=== PATIENT | male | born 1985 | race Caucasian/White ===

== ENCOUNTER 2023-08-17 15:10 | Emergency (ER) | payer OTHER, SELFPAY ==
[2023-08-17 15:12] VITALS: BP 165/85; PULSE 83; RESP 14; TEMP 37; O2SAT 100
[2023-08-17 15:19] VITALS: BP 165/85; PULSE 83; RESP 14; TEMP 37; O2SAT 100
--- NOTE | 2023-08-17 15:45 | DI.RAD_ITS ---
Exam(s) XR TIB/FIB RT EXAM: XR TIB/FIB RT CLINICAL HISTORY: Right lower extremity swelling. TECHNIQUE: 2D digital imaging was performed of the right tibia and fibula. Four images were obtained . AP and lateral views were obtained. COMPARISON: No exams were available for comparison FINDINGS: BONES: No acute fracture is present. No bony destructive lesion is seen. Visualized portion of knee a nd ankle joints are unremarkable. There is a small enthesophyte at the posterior calcaneus. Degenera tive changes are seen at the talonavicular joint. SOFT TISSUE: There is soft tissue swelling of the lower leg. No subcutaneous gas or radiopaque forei gn body is identified. IMPRESSION: No acute fracture or dislocation. No radiographic evidence to suggest osteomyelitis. DATA REPOSITORY: RADIATION DOSE DELIVERED:
[2023-08-17] MEDS: Clindamycin 150 MG CAP 450 MG PO (16:19)
--- NOTE | 2023-08-17 17:10 | DI.VRAD_ITS ---
PROCEDURE INFORMATION: Exam: XR Right Tibia and Fibula Exam date and time: 08/17/2023 4:00 PM Age: 38 years old Clinical indication: Cellulitis; Lower leg; Patient HX: Right lower extremity swelling TECHNIQUE: Imaging protocol: Radiologic exam of the right tibia and fibula. Views: 2 views. Total images: 12 COMPARISON: No relevant prior studies available. FINDINGS: Bones/joints: Old fracture deformity fibular shaft. No periostitis or bony destruction. Soft tissues: Subcutaneous edema. No soft tissue gas. IMPRESSION: No acute bony abnormality. Dictated and Authenticated by: Marc Simon MD. Ordering:TALON Carpio MD
--- NOTE | 2023-08-17 17:16 | ED.GENADUL_ITS ---
Discharge Plan Disposition Patient Disposition: Home Discharge Details Clinical Impression: Cellulitis of right leg Primary Care Provider: Unknown,Unknown ED Provider: Balaji Vick Home Meds and New Rx's Prescriptions: New clindamycin HCl 300 mg capsule 600 mg PO Q8H 5 Days Qty: 30 0RF (DME) Unna Boot 12 %- 3 X 10 yard bandage See Rx Instructions .Route Qty: 1 0RF Rx Instructions: As directed Continued buprenorphine HCl 8 mg tablet, sublingual 8 mg sublingual DAILY doxycycline hyclate 1 tab PO BID ibuprofen 1 tab PO BID Discharge Instructions Additional Instructions: You are seen in the emergency department for your leg swelling. You have a skin infection for which you should take these antibiotics as directed. Please return to the emergency department as we discussed if you develop fevers worsening pain or cannot eat or drink as result of nausea or vomiting. Discharge Data Discharge Date/Time-TO BE ENTERED AT DEPARTURE: 08/17/23 17:29 HPI General Date/Time Provider Initiated Documentation: 08/17/23 15:16 . HPI Narrative: MDM This is an overall well-appearing normothermic and not tachycardic 38-year-old male with left lower extremity swelling mild erythema concerning for the possibility of early cellulitis possibly secondary to xylazine given acute on chronic nature. No fluctuance to suggest abscess. No pain out of proportion to suggest necrotizing soft tissue infection. Limited bedside right lower extremity duplex study negative for DVT. Right foot warm well-perfused so I am not concerned for critical limb ischemia so I do not feel that the patient requires a CT angiogram with runoffs. Will obtain an x-ray to assess for any underlying osseous abnormalities. No bilateral lower extremity swelling nor any history of heart failure so doubt acute CHF. Patient had no soft tissue gas on ultrasound based on no dirty shadow so I did not feel that the patient required a CT scan. Not a dialysis patient so doubt calciphylaxis. Good range of motion in ankle and knee so I am not concerned for septic joint. I treated the patient with clindamycin given patient reported allergy to penicillin which caused anaphylaxis. Patient and I discussed return to the ED for worsening pain fevers or any decreased range of motion in foot. Patient understood return indications and was discharged with empiric trial of expectant outpatient management. I also wrote patient for prescription for Unaboot which had helped him in the past. First dose of antibiotics given in the emergency department. Chronic conditions affecting the care of the patient: Right lower extremity skin changes HPI This is a 38-year-old incarcerated male with history of right lower extremity chronic swelling. Patient reports that for the past 4 to 5 days he has had worsening swelling and some discomfort. No history of DVT but patient does have a history of cellulitis. No fevers nausea nor vomiting. No shortness of breath. Patient has received treatment in the past with the Unna boot which has improved his symptoms. Denies any trauma to his right lower extremity. He has been active but present but not taken any falls. Exam General: Well-appearing in no acute distress speaking in complete sentences. Head: Normocephalic, atraumatic. Eye: Extraocular eye movements intact. No conjunctival injection. No scleral icterus. Ear, nose, mouth, throat: Grossly normal inspection. Normal voice, handling secretions normally. Neck: Trachea midline. Cardiovascular: Well-perfused distal extremities. Respiratory: Nonlabored respiration. Gastrointestinal: Nondistended abdomen. Musculoskeletal: [place] discoloration and tenderness with erythema and swelling to right lower extremity between the proximal tibia and the ankle as shown in the photos that follow: No pain out of proportion. Right foot warm well-perfused with 2+ PT and DP pulses. 5 out of 5 strength right foot dorsi and plantarflexion. Skin: Normal for age and race, grossly normal temperature and turgor. No acute rash. Neurologic: Alert and appropriate, no apparent acute deficits. Psychiatric: Mood and manner are appropriate. Grooming and personal hygiene are appropriate. Related Data Home Medications Medication Instructions Recorded Confirmed buprenorphine HCl 8 mg sublingual 8 mg sublingual DAILY 08/17/23 08/17/23 tablet clindamycin HCl 300 mg capsule 600 mg (2 x 300 mg) PO Q8H 5 days 08/17/23 #30 caps doxycycline hyclate 1 tab PO BID 08/17/23 08/17/23 ibuprofen 1 tab PO BID 08/17/23 08/17/23 zinc oxide 12 %-gauze bandage 3 X #1 ea 08/17/23 10 yard (Unna Boot) Previous Rx's Medication Instructions Recorded clindamycin HCl 300 mg capsule 600 mg (2 x 300 mg) PO Q8H 5 days 08/17/23 #30 caps zinc oxide 12 %-gauze bandage 3 X #1 ea 08/17/23 10 yard (Unna Boot) Allergies Allergy/AdvReac Type Severity Reaction Status Date / Time Penicillins Allergy Severe Anaphylaxis Verified 08/17/23 15:16 General Stated Complaint: Cellulitis BEAR: 3 Course Vital Signs Vital signs: Vital Signs Temperature 37.0 C 08/17/23 15:12 Pulse 83 08/17/23 15:12 Respiratory Rate 14 08/17/23 15:12 Blood Pressure 165/85 H 08/17/23 15:12 Pulse Oximetry 100 08/17/23 15:12 Temperature 37.0 C 08/17/23 15:19 Temperature Source Oral 08/17/23 15:19 Pulse 83 08/17/23 15:19 Respiratory Rate 14 08/17/23 15:19 Respiratory Effort Normal 08/17/23 15:34 Blood Pressure 165/85 H 08/17/23 15:19 Blood Pressure Position Sitting 08/17/23 15:19 Pulse Oximetry 100 08/17/23 15:19 Oxygen Delivery Method Room Air 08/17/23 15:19 Oxygen Flow Rate 0 08/17/23 15:19 Pain Level 5 08/17/23 15:19 Medical Decision Making Quality:SDOH Health Related Social Needs: 2 No Data to Display PFSH All Active Problems (Updated 08/17/23 @ 17:19 by Balaji Vick MD) Cellulitis of right leg (Acute) Social History Smoking risk assessment performed?: No POCUS Exam (ED) Limited Vascular Exam DATE OF EXAM: 08/17/23 TIME OF EXAM: 16:00 PROVIDER THAT PERFORMED THE STUDY: Balaji Vick IS THIS A REPEAT EXAM DURING THIS ENCOUNTER: No Vascular Exam: Right lower extremity REASON FOR EXAM: Right lower extremity swelling/edema Exam Complete DIFFERENTIAL DIAGNOSES: No right lower extremity DVT
== END 2023-08-17 17:29 | disposition home or self-care (01) ==
PROVIDERS: Emergency Provider Emergency Medicine
DX: L03.115 Cellulitis of right lower limb (principal)
CPT/HCPCS: 93971; 99284; 73590

== ENCOUNTER 2023-12-26 10:21 | Emergency (ER) | payer OTHER, SELFPAY ==
--- NOTE | 2023-12-26 10:26 | NUR.NOTE ---
Nursing Note: Received report from correctional facility that patient would be transported by correctional offers for evaluation on a worsening leg wounds. Pt was checked in by correctional staff and patient refused to be seen. Pt left w/correctional staff to return to correctional facility and update provided to chart writer Wanda, RN via phone.
== END 2023-12-26 10:29 | disposition left against medical advice (07) ==
LOC: ER 12:19
DX: Z53.21 Procedure and treatment not carried out due to patient leaving prior to being seen by health care provider (principal)